=== PATIENT | female | born 1965 | race Caucasian/White ===

== ENCOUNTER → 2021-04-17 00:43 | Outpatient (CLI) | payer OTHER, SELFPAY ==
[2021-04-18 10:58] LABS: SARS-CoV-2 RNA PCR Positive
== END ==
DX: U07.1 COVID-19 (principal)
CPT/HCPCS: C9803; U0003; U0005

== ENCOUNTER 2021-06-24 08:52 | Emergency (ER) | payer OTHER, SELFPAY ==
--- NOTE | ~2021-06-24 | XR_ITS ---
EXAMINATION: XR chest 2V DATE: 06/24/2021 09:41 INDICATION: One week of cough TECHNIQUE: frontal and lateral views of the chest were obtained. COMPARISON: Chest radiograph dated 11/07/2016 FINDINGS: New focal airspace opacities and bronchial wall thickening in the left lower lobe concerning for pneu monia. No pleural effusion or pneumothorax. The cardiomediastinal silhouette is normal. Mild thoracic spondylosis. Cholecystectomy clips in the upper abdomen. IMPRESSION: 1. Left lower lobe pneumonia. Reviewed, dictated and finalized at location A.
[2021-06-24 09:00] VITALS: BP 125/69; PULSE 92; RESP 20; TEMP 37.2; O2SAT 95
--- NOTE | 2021-06-24 09:05 | ED.URI ---
HPI - URI/Sore Throat General Chief Complaint: Upper Respiratory Infection Stated Complaint: Cough/Congestion Time Seen by Provider: 06/24/21 09:05 Source: patient and RN notes reviewed Mode of arrival: ambulatory Limitations: no limitations History of Present Illness HPI Narrative: 55-year-old female presented for complaint of cough and chest congestion for 1 week. Endorses bilateral ear pressure and shortness of breath worse at night. Cough is nonproductive. Also endorses burning, frequency, and urinary hesitancy. She has been taking prescribed cough syrup, DayQuil, NyQuil, Mucinex and Robitussin. She was positive for Covid in April. She is not due for her booster. She is vaccinated for flu. History of frequent UTIs. Endorses sick contacts, grandchildren. Denies significant medical history. MD elicited complaint: cough Related Data Home Medications Medication Instructions Recorded Confirmed citalopram 40 mg tablet 40 mg PO DAILY 11/09/20 06/24/21 esketamine 84 mg (28 mg x 3) nasal 84 mg INTRANASAL WEEKLY 11/09/20 06/24/21 spray gabapentin 300 mg capsule 300 mg PO TID 11/09/20 06/24/21 levothyroxine 50 mcg tablet 50 mcg PO DAILY 11/09/20 06/24/21 zolpidem 5 mg tablet 5 mg PO QHS PRN 11/09/20 06/24/21 Allergies Allergy/AdvReac Type Severity Reaction Status Date / Time Penicillins Allergy Unknown Unknown Verified 06/24/21 09:03 Sulfa (Sulfonamide Allergy Unknown Unknown Verified 06/24/21 09:03 Antibiotics) Review of Systems Review of Systems: CONSTITUTIONAL: Endorses malaise, chills, sweats, fever EYES: Denies visual changes, redness, or discharge ENT: Reports rhinorrhea, congestion, otalgia denies sinus pain, sore throat CARDIOVASCULAR: Denies chest pain, palpitations, edema RESPIRATORY: Reports cough, post nasal drainage, dyspnea GASTROINTESTINAL: Denies abdominal pain, nausea, vomiting, diarrhea SKIN: Denies rash or itching MUSCULOSKELETAL: denies myalgia NEUROLOGIC: Denies headache PMF Family History Family History Father Hypertension Grandparent Carcinoma of colon Family history of lung cancer Other Family history of elevated blood lipids Family history of osteoporosis Social History Social History Smoking status: Never smoker Alcohol intake: current Exam Narrative: GENERAL: Ill-appearing, nontoxic HEAD: Normocephalic EYES: conjunctivae clear ENT: Mucous membranes moist.bilat canals erythematous, TM pearly caldera with dull light reflex bilaterally; no tragal tenderness. Hoarse voice, Oropharynx erythematous without lesions or exudate, no drooling, no hoarseness, no trismus, uvula midline. NECK: Supple. No lymphadenopathy CHEST: Lungs with wheezing to bilat bases, nonproductive cough. No respiratory distress, speaks in full sentences. HEART: Regular rate and rhythm. No murmur heard. SKIN: Warm, dry, no rash. NEURO: Alert and oriented x3. PSYCH: Normal mood and affect Course Course Emergency Course: Patient is aware of diagnosis, understands and agrees to treatment plan. Anticipatory guidance given. Patient agrees to follow-up as directed and is aware of reasons to seek care at the emergency department. Portions of this record may have been created with voice recognition software Level of Care: Express Care Visit Vital Signs Vital signs: Vital Signs Temperature 98.9 F 06/24/21 09:00 Pulse Rate 92 06/24/21 09:00 Respiratory Rate 20 06/24/21 09:00 Blood Pressure 125/69 06/24/21 09:00 Pulse Oximetry 95 06/24/21 09:00 Temperature 98.9 F 06/24/21 09:00 Pulse Rate 92 06/24/21 09:00 Respiratory Rate 20 06/24/21 09:00 Blood Pressure 125/69 06/24/21 09:00 Pulse Oximetry 95 06/24/21 09:00 reviewed MDM - URI/Sore Throat MDM Narrative Medical decision making narrative: X-ray shows left lower lobe pneumonia patient will be
== END 2021-06-24 10:29 | disposition home or self-care (01) ==
PROVIDERS: Emergency Provider Nurse Practitioner Family
DX: R05.9 Cough, unspecified (principal); B00.9 Herpesviral infection, unspecified; N39.0 Urinary tract infection, site not specified; J18.1 Lobar pneumonia, unspecified organism
CPT/HCPCS: 71046; 81003; 87077; 87086; 87186; 99213; G0463

== ENCOUNTER 2021-07-08 08:03 | Emergency (ER) | payer OTHER, SELFPAY ==
--- NOTE | ~2021-07-08 | XR_ITS ---
EXAMINATION: XR chest 2V EXAM DATE: 07/08/2021 08:41 INDICATION: PT. Had LLL Pneumonia On 06/24/21. Cough/Sob Still. . TECHNIQUE: Frontal and lateral projections of the chest obtained and reviewed. Comparison is made to prior examination from 06/24/2021. FINDINGS: There is near complete resolution of previously seen ill-defined left lower lobe segmental airspace disease consistent with pneumonia. No confluent consolidation, pneumothorax or pleural effu saumya suspected. Cardiomediastinal silhouette is normal. There are no osseous abnormalities identified . IMPRESSION: Nearly resolved left lower lobe pneumonia. Reviewed, dictated and finalized at location A.
[2021-07-08 08:10] VITALS: BP 150/83; PULSE 91; RESP 20; TEMP 38.2; O2SAT 98
--- NOTE | 2021-07-08 08:13 | ED.URI ---
HPI - URI/Sore Throat General Chief Complaint: Upper Respiratory Infection Stated Complaint: Cough/Congestion/Fever Time Seen by Provider: 07/08/21 08:14 Source: patient and RN notes reviewed Mode of arrival: ambulatory Limitations: no limitations History of Present Illness HPI Narrative: 55 year old female who presents to [facility] with complaints of cough, fevers,nasal congestion,headache, some chest congestion also. Patient states that she was seen on the 24 of June and diagnosed with LL lobe pneumonia and was treated with Levaquin which she states she completed, Medrol dose pack, and also some cough medication. Patient states that her symptoms seemed to improve some but the past 2 days her cough has increased with congestion and has been having fevers and chills.Patient has been using her rescue inhaler with minimal help with her cough. Patient has been taking Xyzal, Lyssa D, her inhaler, Tylenol for fevers up to 102F, and also some Benadryl. Patient has had COVID vaccinations and flu shot, states she has also had COVID in April of 2021. MD elicited complaint: cough Pertinent past history: pneumonia Treatments prior to arrival: acetaminophen Related Data Home Medications Medication Instructions Recorded Confirmed citalopram 40 mg tablet 40 mg PO DAILY 11/09/20 07/08/21 esketamine 84 mg (28 mg x 3) nasal 84 mg INTRANASAL WEEKLY 11/09/20 07/08/21 spray gabapentin 300 mg capsule 300 mg PO TID 11/09/20 07/08/21 zolpidem 5 mg tablet 5 mg PO QHS PRN 11/09/20 07/08/21 levothyroxine [Euthyrox] 50 mcg PO DAILY 07/08/21 07/08/21 methylphenidate HCl 20 mg PO BID 07/08/21 07/08/21 Allergies Allergy/AdvReac Type Severity Reaction Status Date / Time Penicillins Allergy Unknown Unknown Verified 07/08/21 08:28 Sulfa (Sulfonamide Allergy Unknown Unknown Verified 07/08/21 08:28 Antibiotics) Review of Systems Review of Systems: CONSTITUTIONAL: Positive for fever, chills, or sweats. EYES: Denies visual changes, redness, or discharge. ENT: Positive rhinorrhea, congestion,no sore throat, or otalgia. CARDIOVASCULAR: Denies chest pain, palpitations, or edema. RESPIRATORY: Positive for cough with mild dyspnea. GASTROINTESTINAL: Denies abdominal pain, nausea, vomiting, or diarrhea. GENITOURINARY: Denies dysuria or hematuria. SKIN: Denies rash or itching. MUSCULOSKELETAL: Denies back pain, joint pain, or myalgia. NEUROLOGIC: Denies headache, numbness, or weakness. PSYCHIATRIC: Positive for history of anxiety or depression. All systems reviewed & are unremarkable except as noted in HPI and below PMFSH Past Medical History Medical History (Updated 07/08/21 @ 09:08 by Aura Cardenas NP) Asthma COVID-19 April 2021 Depression Hypothyroidism Seasonal allergies Sleep apnea Thalassemia minor Surgical History Surgical History (Updated 07/08/21 @ 08:36 by Aura Cardenas NP) H/O: hysterectomy History of knee surgery bilateral screw placed to knees due to dislocations History of repair of right rotator cuff History of weight loss surgery Hx of bladder repair surgery TVT Hx of cholecystectomy S/P left knee arthroscopy Family History Family History Father Hypertension Grandparent Carcinoma of colon Family history of lung cancer Other Family history of elevated blood lipids Family history of osteoporosis Social History Social History (Updated 07/08/21 @ 09:08 by Aura Cardenas NP) Smoking status: Never smoker Alcohol intake: current Substance use: never Living arrangements: with family Gender identity (if verbalized by the patient): Female Comments At time of signature, agree with nursing past medical, surgical, social and family history. There is no relevant family history pertinent to the presenting complaint Exam Narrative: GENERAL: Ill-appearing, well-nourished, and in mild acute distress. HEAD: Normocephalic, atraumat
== END 2021-07-08 09:09 | disposition home or self-care (01) ==
PROVIDERS: Emergency Provider Registered Nurse
DX: J18.1 Lobar pneumonia, unspecified organism (principal); J45.909 Unspecified asthma, uncomplicated; E03.9 Hypothyroidism, unspecified; G47.30 Sleep apnea, unspecified; Z86.16 Personal history of COVID-19; D56.3 Thalassemia minor; F32.A Depression, unspecified
CPT/HCPCS: 71046; 99213; G0463

== ENCOUNTER 2021-12-05 09:49 | Outpatient (CLI) | payer OTHER, SELFPAY ==
--- NOTE | 2021-12-05 | ECG_ITS ---
Measurements Intervals Duncan Rate: 76 P: 64 DE: 166 QRS: 34 QRSD: 72 T: 46 QT: 396 QTc: 447 Interpretive Statements SINUS RHYTHM NORMAL ECG NO PREVIOUS ECG AVAILABLE FOR COMPARISON Electronically Signed On 12-05-2021 10:26:36 CDT by Roe Wilson D.O.
== END 2021-12-05 09:50 | disposition home or self-care (01) ==
LOC: ANHCARD 09:56
DX: Z51.81 Encounter for therapeutic drug level monitoring (principal); Z79.899 Other long term (current) drug therapy
CPT/HCPCS: 93005

== ENCOUNTER 2022-07-12 14:53 | Outpatient (CLI) | payer OTHER, SELFPAY ==
--- NOTE | ~2022-07-12 | MM_ITS ---
EXAMINATION: MM screening charlie BI w aliza HISTORY: Screening mammogram TECHNIQUE: Craniocaudal and mediolateral oblique 3-D tomosynthesis images were obtained and synthetic 2-D images were generated. CAD analysis was submitted and interpreted. COMPARISON: No prior mammogram is available for comparison at this institution. BREAST PARENCHYMAL COMPOSITION: The breasts are almost entirely fatty. FINDINGS: There is no evidence of suspicious mass, calcification, or architectural distortion to sugg est malignancy in either breast. There has been no suspicious interval change. IMPRESSION: 1. No mammographic evidence of malignancy. 2. Recommend routine screening mammography in one year. BI-RADS Category 1: Negative Reviewed, dictated and finalized at location A.
--- NOTE | ~2022-07-12 | DEXA_ITS ---
Bone Density Report Name: DEXTER RYDER Age: 56 Sex: Female Ethnicity: White Date of : 1965 Indication: postmenopausal; screening for osteoporosis; prior fracture; hysterectomy; Referring Provider: GISELA TAYLOR Study: Bone densitometry was performed. Exam Date: July 12, 2022 Accession number: [id number] Bone Density: Region BMD T-score Z-score Classification AP Spine(L1-L4) 0.906 -1.3 0.0 Osteopenia Femoral Neck (Left) 0.640 -1.9 -0.7 Osteopenia Total Hip (Left) 0.870 -0.6 0.3 Normal Femoral Neck (Right) 0.628 -2.0 -0.8 Osteopenia Total Hip (Right) 0.803 -1.1 -0.3 Osteopenia Total Hip Mean 0.837 -0.9 0.0 Normal World Health Organization criteria for BMD impression classify patients as: Normal (T-score at or above -1.0), Osteopenia (T-score between -1.0 and -2.5), or Osteoporosis (T-score at or below -2.5). 10-year Fracture Risk(1): Major Osteoporotic Fracture 14% Hip Fracture 1.6% Reported Risk Factors: [place] (), Neck BMD=0.628, BMI=36.9, previous fracture (1) FRAX(R) Version 3.08. Fracture probability calculated for an untreated patient. Fracture probability may be lower if the patient has received treatment. Clinical Information Provided by Patient: Has had a low trauma fracture Has used the following medications: Vitamin D, Calcium Has the following medical conditions: Hysterectomy Patient maximum height was 64 Menopause Age: 38 No regular weight bearing exercise Onset of menses at age 10 Number of children 2 Impression: The patient has low bone mass, based on the Right Femoral Neck T-score. The patient has an estimated ten-year risk of hip fracture of 1.6% and an estimated ten-year risk of major fracture of 14%, based on the WHO FRAX algorithm. The patient has risk factors, including: previous fracture. Discussion: BONE DENSITY IS LOW AT ONE OR MORE SKELETAL SITES. This patient's lowest T-score is low at one or more skeletal sites. It meets the World Health Organization's (WHO) criteria for ?low bone mass? (T-score between -1.0 and -2.5). The patient's 10-year risk of fracture as calculated by FRAX is less than the threshold where pharmacological therapy is recommended by the National Osteoporosis Foundation (NOF). However, all treatment decisions require clinical judgment and consideration of individual patient factors, including patient preferences, comorbidities, previous drug use, risk factors not captured in the FRAX model (e.g., frailty, falls, vitamin D deficiency, increased bone turnover, interval significant decline in bone density) and possible under or overestimation of fracture risk by FRAX. The patient should follow a healthful lifestyle (good nutrition with adequate calcium and vitamin D, and appropriate weight-bearing exercise). Follow-Up: Co
== END 2022-07-12 14:54 | disposition home or self-care (01) ==
DX: Z12.31 Encounter for screening mammogram for malignant neoplasm of breast (principal); Z78.0 Asymptomatic menopausal state; M85.89 Other specified disorders of bone density and structure, multiple sites
CPT/HCPCS: 77063; 77067; 77080

== ENCOUNTER 2022-07-26 12:05 | Outpatient (CLI) | payer OTHER, SELFPAY ==
--- NOTE | ~2022-07-26 | XR_ITS ---
EXAMINATION: XR UGIAC wo kub DATE: 07/26/2022 12:48 INDICATION: Bariatric surgery. Weight gain. TECHNIQUE: The patient drank thick barium, gas-producing crystals, and thin barium. A total of 854 fl uoroscopic images of the esophagus, stomach, and proximal small bowel were obtained. Fluoroscopy expo sure time was 1.4 minutes. Total DAP was 22.036 Gycm^2 COMPARISON: None. FINDINGS: There is a stimulator lead extending into the left neck with distal tip located over the expected loc ation of the left carotid body. The esophagus is normal without mass or stricture. Esophageal motilit y is normal. 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 Small sliding-type hia jayde hernia with gastroesophageal junction approximately 4 cm above level of the gastroesophageal junc tion. There is a small diverticulum arising along the right side of the intrathoracic portion of the stomach. The gastrojejunal anastomosis is approximately 4 cm below level of the diaphragm and there i s rapid transit of contrast through the draining stomach and into the Chasity limb. No evident extralumi nal contrast extravasation, evident abnormal fistulous communication or passage of contrast into any residual excluded portion of the stomach. There was no gastroesophageal reflux with provocative maneu vers. Cholecystectomy clips in right upper quadrant. IMPRESSION: 1. 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 2. Small sliding-type hiatal hernia with small diverticulum arising from the intrathoracic portion of the stomach. Reviewed, dictated and finalized at location A. IMPRESSION: 1. 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 2. Small sliding-type hiatal hernia with small diverticulum arising from the in trathoracic portion of the stomach.
== END 2022-07-26 12:06 | disposition home or self-care (01) ==
LOC: ANHIMG 12:07
DX: K44.9 Diaphragmatic hernia without obstruction or gangrene (principal); R63.5 Abnormal weight gain; Z98.84 Bariatric surgery status
CPT/HCPCS: 74246

== ENCOUNTER 2023-07-29 09:50 | Outpatient (CLI) | payer OTHER, SELFPAY ==
--- NOTE | ~2023-07-29 | CT_ITS ---
EXAMINATION: CT soft tissue neck w con DATE: 07/29/2023 10:26 INDICATION: Neck mass. TECHNIQUE: Computed tomography (CT) of the neck was performed with 75 mL Omnipaque-350 intravenous co ntrast. Automated exposure control and iterative reconstruction technique were employed. The dose-luis angel gth product was 516.20 mGy-cm. COMPARISON: None FINDINGS: There are no pathologically enlarged lymph nodes. There is 0% stenosis of the proximal inte rnal carotid arteries relative to normal distal artery lumen diameters. There is a left chest implant with electrodes in the left neck. There is severe cervical spondylosis. IMPRESSION: 1. No abnormal neck mass or lymphadenopathy. Reviewed, dictated and finalized at location A.
== END 2023-07-29 09:51 | disposition home or self-care (01) ==
DX: R68.2 Dry mouth, unspecified (principal); R22.1 Localized swelling, mass and lump, neck
CPT/HCPCS: 70491; Q9967